=== PATIENT | male | born 1985 | race Caucasian/White ===

== ENCOUNTER 2016-09-07 13:28 | Emergency (ER) | payer BC ==
[~2016-09-07] VITALS: Ht 188 cm; Wt 77.2 kg
[2016-09-07] MEDS ORDERED: MORPHINE SULFATE 4 MG/ML, 1ML ONE (14:00)
[2016-09-07] MEDS ORDERED: SODIUM CHLORIDE 0.9% 1,000ML IVBOLUS ONE (14:00)
[2016-09-07] MEDS ORDERED: PROMETHAZINE 25 MG/ML, 1ML IM ONE (14:00)
[2016-09-07] MEDS ORDERED: SODIUM CHLORIDE FLUSH 10ML SYR IVF ONE (14:00)
[2016-09-07] MEDS ORDERED: MORPHINE SULFATE 4 MG/ML, 1ML IVPush PRN (14:00)
[2016-09-07] MEDS ORDERED: ONDANSETRON 2MG/ML, 2ML ONE ×2 (14:00→14:20)
[2016-09-07] MEDS ORDERED: ONDANSETRON 2MG/ML, 2ML IVPush ONE (14:00)
[2016-09-07] MEDS ORDERED: PROMETHAZINE 25 MG/ML, 1ML ONE (14:01)
[2016-09-07 14:17] LABS: ASPARTATE AMINO TRANSFERASE 48 U/L (15-37); BLOOD UREA NITROGEN 20 mg/dL (7-18)
[2016-09-07 15:06] VITALS: BP 130/80
== END 2016-09-07 15:28 | disposition home or self-care (01) ==
LOC: ED 14:48
DX: K52.29 Other allergic and dietetic gastroenteritis and colitis (principal); R11.2 Nausea with vomiting, unspecified; R10.84 Generalized abdominal pain; E86.0 Dehydration; G43.909 Migraine, unspecified, not intractable, without status migrainosus
CPT/HCPCS: 36415; 80053; 83690; 85025; 93005; 96361; 96372; 96374; 96375; 99285; J2405; J2550; J7030